=== PATIENT | male | born 1950 | race American Indian/Alaskan Native ===

== ENCOUNTER 2018-08-14 07:49 | Day surgery (SDC) | payer MEDICAID, MEDICARE ==
[~2018-08-14 07:49] MED LIST: ANCEF/STERILE WATER 2 GM/20 ML 2 GM/20 ML SYRINGE IV NR; NACL 0.9% 1000 ML 1,000 ML IV SCH
[2018-08-14] MEDS ORDERED: VERSED ONE (08:43)
--- NOTE | 2018-08-14 08:50 | Anesthesia Consultation ---
Anesthesia Consult and Med Hx Date of service: 08/14/18 - Airway ROM Head & Neck: Adequate Mental/Hyoid Distance: Adequate Mallampati Class: Class II Intubation Access Assessment: Probably Good - Pulmonary Exam CTA: Yes - Cardiac Exam Cardiac Exam: RRR - Pre-Operative Health Status ASA Pre-Surgery Classification: ASA4 Proposed Anesthetic Plan: General - Pulmonary Hx Smoking: No - Cardiovascular System Hx Hypertension: Yes - Central Nervous System Hx Psychiatric Problems: No - Endocrine Hx Renal Disease: Yes Hx End Stage Renal Disease: Yes - Other Systems Hx Cancer: No
[2018-08-14 08:58] LABS: Calcium 8.1 mg/dL (8.4-10.2)
[2018-08-14] MEDS ORDERED: PEPCID PO NR (09:00)
[2018-08-14] MEDS ORDERED: NACL 0.9% 1000 ML 1,000 ML IV SCH (09:00)
[2018-08-14] MEDS ORDERED: DILAUDID ONE (10:56)
[2018-08-14] MEDS ORDERED: DIPRIVAN 10 MG/ML IV ONE (10:56)
[2018-08-14] MEDS ORDERED: XYLOCAINE MPF 2% ONE (10:57)
[2018-08-14] MEDS ORDERED: HEPARIN 10,000 UNITS/10 ML ONE (11:01)
[2018-08-14] MEDS ORDERED: MARCAINE-EPI 0.5%-1:200,000 INFILTRATI ONE ×2 (11:02→12:19)
[2018-08-14] MEDS ORDERED: NITROGLYCERIN SYRINGE 0 ML ONE (11:03)
[2018-08-14] MEDS ORDERED: NACL 0.9% 500 ML 500 ML ONE (11:03)
[2018-08-14] MEDS ORDERED: GELFOAM TP ONE ×2 (11:04→12:20)
[2018-08-14] MEDS ORDERED: XYLOCAINE 1%/ EPI 1:100,000 INFILTRATI ONE (11:04)
[2018-08-14] MEDS ORDERED: SODIUM BICARBONATE ONE (11:04)
[2018-08-14] MEDS ORDERED: THROMBIN (BOVINE) TP ONE ×2 (11:05→12:20)
[2018-08-14] MEDS ORDERED: NACL 0.9% IR ONE ×2 (12:19→13:00)
[2018-08-14] MEDS ORDERED: HEPARIN 10,000 UNITS/10 ML 2,000 UNIT in NACL 0.9% 500 ML 500 ML IR ONE (12:21)
[2018-08-14] MEDS ORDERED: RIFADIN IV ONE (12:54)
[2018-08-14] MEDS ORDERED: ADRENALIN ONE (13:11)
--- NOTE | 2018-08-14 14:24 | Short Stay Summary ---
Short Stay Documentation Date of service: 08/14/18 - History H&P: obtained from office - Allergies and Medications Current Medications: Allergies aspirin Allergy (Verified 08/13/18 15:50) Unknown Home Medications Medication Instructions Recorded Confirmed Last Taken Type Aspirin Enteric Coated TAB 325 mg PO DAILY 08/14/18 08/14/18 08/13/18 09:00 History Calcium Carbonate 1 tab PO TID 08/14/18 08/14/18 08/13/18 21:00 History Dialyvite 800 Plus D Wafer 800 mg PO DAILY 08/14/18 08/14/18 08/13/18 21:00 History HumuLIN N 20 units SUB-Q BID 08/14/18 08/14/18 07/24/18 History Hydralazine HCl 10 mg PO TID 08/14/18 08/14/18 08/13/18 21:00 History Isosorbide Dinitrate 30 mg PO TID 08/14/18 08/14/18 08/13/18 21:00 History Labetalol 200 mg PO TID 08/14/18 08/14/18 08/13/18 21:00 History Omeprazole 40 mg PO DAILY 08/14/18 08/14/18 08/14/18 07:00 History Pravastatin [Pravachol] 40 mg PO QHS 08/14/18 08/14/18 08/13/18 21:00 History Torsemide 20 mg PO DAILY 08/14/18 08/14/18 08/13/18 09:00 History Vitamelts Fast Dissolve 1,500 mcg PO DAILY 08/14/18 08/14/18 08/13/18 08:00 History Vitamin B12 1,500 mcg PO DAILY 08/14/18 08/14/18 08/13/18 09:00 History cloNIDine [Catapres] 0.1 mg PO TID 08/14/18 08/14/18 08/13/18 21:00 History Active Medications Famotidine (Pepcid) 20 mg PO PREOP NR Stop: 08/14/18 15:00 Last Admin: 08/14/18 08:53 Dose: 20 mg Documented by: Cefazolin Sodium (Ancef/Sterile Water 2 Gm/20 Ml) 2 gm in 20 mls @ 80 mls/hr IV PREOP NR; Protocol Stop: 08/14/18 23:00 Sodium Chloride (Nacl 0.9% 1000 Ml) 1,000 mls @ 42 mls/hr IV DIRECT ANTONI Last Admin: 08/14/18 08:40 Dose: 42 mls/hr Documented by: - Brief post op/procedure progress note Date of procedure: 08/14/18 Pre-op diagnosis: thrombosed right arm arteriovenous fistual Post-op diagnosis: same Procedure: 1. Open thrombectomy with revision of the right arm arteriovenous fistula 2. Fluoroscopic assistance Anesthesia: GETA, local Findings: Good thrill and palpable right radial pulse at end of procedure Surgeon: NAVEED DURAN Slitter Processed Film: GILBERT PAGAN Estimated blood loss: 50-100ml Pathology: list (thrombus) Specimen disposition: to lab Condition: stable - Hospital course Hospital course: benign - Disposition Condition at discharge: Good Disposition: DC-01 TO HOME OR SELFCARE Short Stay Discharge Plan Activity: advance as tolerated Diet: advance as tolerated Wound: per your surgeon's advice Follow up with: NAVEED DURAN MD [Staff Physician] - 7 Days Prescriptions: HYDROcodone/APAP 5-325 [[place] 5/325] 1 each PO Q6HR PRN #30 tablet PRN Reason: Pain
[2018-08-14] MEDS ORDERED: D50W (25GM) Syringe IV ONE ×2 (14:30→14:43)
--- NOTE | 2018-08-14 14:32 | Operative Report ---
Operative Report Operative Report: Date of procedure: 08/14/2017 Pre-operative diagnosis: Thrombosed right forearm arteriovenous fistula Post-operative diagnosis: Same Procedure: 1. Open thrombectomy and revision of right arm arterial venous fistula using 6 mm bovine graft 2. Fluoroscopic assistance Surgeon: Bj Diggs MD Organizational Psychologist: Minerva Oquendo Anesthesia: Gen. with local supplementation EBL: Less than 100 mL Operative indication: Patient is a 68-year-old man with a 2-year-old radiocephalic fistula in the right forearm. The fistula thrombosed a week or so ago. He has a permacath in place now which she is using for dialysis. He presents now for thrombectomy of the existing arteriovenous graft. Findings: There was a large pseudoaneurysm in the proximal forearm which drained through diminished venous outflow at the antebrachial vein. Fistula could only be salvaged by bridging this area with a new 6 mm bovine graft. There was an excellent thrill and palpable right radial pulse at the end of the procedure. Procedure description: The patient was placed on the table in the supine position. He was given appropriate anesthesia. The area over the right arm was prepped with ChloraPrep solution and draped in usual sterile fashion. Real-time ultrasound guidance was used to identify the anatomy of the fistula. The location of the radial artery and the anastomosis was noted. The venous outflow was marked on the skin as well. Using ultrasound guidance, the proximal end of the fistula near the antecubital fossa was cannulated using micropuncture technique. Ultimately a a vertebral catheter was placed into the vein. Drainage was exclusively through the cephalic vein in the upper arm. The vein was thrombosed to about the mid upper arm. Retrograde views were then taken which showed that the vein coursed into the pseudoaneurysm at the top of the cannulation sites and a disadvantaged arrangement with severe narrowing. This equipment was removed. The patient was heparinized ultimately with 4000 units of intravenous heparin. An incision was made over the arterial anastomosis and dissection was carried out to identify the lowest portion of the arterial anastomosis. There was dense scar tissue in the area and I became concerned that it was difficult to see any nerve structures in the area. This dissection was temporarily abandoned. A second incision was made over the venous outflow at the level of the pseudoaneurysm in the proximal forearm extending toward the venous outflow. All structures were identified and surrounded with Vesseloops proximally and distally. An incision was made in the pseudoaneurysm which revealed that the venous outflow was at the base of the pseudoaneurysm through a very narrowed area. I spatulated this opened up to a more normal-appearing segment of the vein although still quite thickened. Proximally, the pseudoaneurysm origin was dissected back to reasonable looking vein. Using fluoroscopy and an [id number] Geoffrey catheter, thrombectomy was done of the venous outflow. Thrombus was obtained and back bleeding was identified. There was no impediment to passage of the Geoffrey. Proximally, the Geoffrey was passed over a wire into the radial artery. Complete thrombectomy including the arterial plug was achieved. There was now excellent inflow into the arteriovenous fistula. There was too much distance to bridge with autogenous tissue. A 6 mm bovine graft was tailored appropriately and sewn into place on the lower end of the arteriovenous fistula using 5-0 Prolene. The upper end of the graft was then sewn in a beveled fashion to the venous outflow using 6-0 Prolene. All vessels were flushed and vented remove any air or debris. There was excellent pulsatile arterial inflow. Venous outflow appeared to be preserved. The anastomosis was completed and flow was started into the fistula with development of a thrill over the fistula. There was a palpable thrill in the cephalic vein TO the shoulder. Meticulous hemostasis was obtained. The wound was infiltrated with half percent Marcaine with epinephrine. Closure was done with 3-0 Vicryl and 4-0 subcuticular Monocryl. Sterile dressings were applied. The patient had a palpable thrill in the arteriovenous graft and venous outflow. There was a palpable right radial pulse. Sponge, needle and instrument counts were reported as correct. The patient tolerated the procedure well and was taken from the operating room to the recovery room in stable condition.
[2018-08-14] MEDS ORDERED: APRESOLINE ONE (14:35)
[2018-08-14] MEDS ORDERED: D50W (25GM) Vial IV ONE (14:43)
[2018-08-14] MEDS ORDERED: NORCO 5/325 PO PRN (16:25)
[2018-08-14 17:12] VITALS: BP 153/74
== END 2018-08-14 07:50 | disposition home or self-care (01) ==
LOC: OR 07:49
PROVIDERS: ATTEND Surgery Vascular Surgery
DX: T82.868A Thrombosis due to vascular prosthetic devices, implants and grafts, initial encounter (principal); K21.9 Gastro-esophageal reflux disease without esophagitis; I12.0 Hypertensive chronic kidney disease with stage 5 chronic kidney disease or end stage renal disease; N18.6 End stage renal disease; M19.90 Unspecified osteoarthritis, unspecified site; Z99.2 Dependence on renal dialysis; Z79.899 Other long term (current) drug therapy; Z79.82 Long term (current) use of aspirin; Z98.890 Other specified postprocedural states; Z88.6 Allergy status to analgesic agent; Y83.8 Other surgical procedures as the cause of abnormal reaction of the patient, or of later complication, without mention of misadventure at the time of the procedure; Y92.89 Other specified places as the place of occurrence of the external cause
CPT/HCPCS: 36833; 80048; 82962; 88304; A4649; C1757; C1768; C1769; C1894; J0171; J0360; J0690; J1170; J1644; J2250; J2704; J3490; J7030; J7040; Q9966

== ENCOUNTER 2019-06-08 05:49 | Emergency (ER) | payer MEDICARE ==
[2019-06-08 06:07] VITALS: BP 137/66
[2019-06-08 06:44] LABS: Basophils % (Auto) 0.9 % (0.0-1.8); Eosinophils # (Auto) 0.6 K/mm3 (0.0-0.4); Eosinophils % (Auto) 13.3 % (0.0-4.3); Hematocrit 25.6 % (35.5-45.6); Hemoglobin 8.4 gm/dl (11.8-15.2); Lymphocytes # (Auto) 0.6 K/mm3 (1.2-5.4); Lymphocytes % (Auto) 13.1 % (13.4-35.0); Mean Corpuscular HGB Conc 33 % (32-34); Mean Corpuscular Volume 93 fl (84-94); Monocytes # (Auto) 0.4 K/mm3 (0.0-0.8); Monocytes % (Auto) 9.5 % (0.0-7.3); Platelet Count 116 K/mm3 (140-440); Red Blood Count 2.74 M/mm3 (3.65-5.03); Red Cell Distribution Width 15.1 % (13.2-15.2)
[2019-06-08 07:05] LABS: Calcium 7.4 mg/dL (8.4-10.2)
--- NOTE | 2019-06-08 08:44 | Emergency Department Report ---
ED General Adult HPI - General Chief complaint: Medical Clearance Stated complaint: NEED LABS DRAWN Time Seen by Provider: 06/08/19 08:34 Source: patient, family Mode of arrival: Ambulatory Limitations: No Limitations - History of Present Illness Initial comments: CC: "I feel fine." HPI: Mr. Pierce is a very pleasant 69 yo male with hx of ESRD on HD T/R/Sa who presents with need for blood work. He returned to his normal time to [facility] HD clinic this morning. Since he has missed HD for 9 days, he was told to come to the ED for bloodwork. He was unable to receive HD in the interim because he need intervention on his AV access. He denies shortness of breath. "I feel good.", he explains. He makes ample urine. He has been on dialysis for 4 days. -: days(s) (9) Severity scale (0 -10): 0 Consistency: constant Improves with: none Worsens with: none Associated Symptoms: denies other symptoms - Related Data Home Medications Medication Instructions Recorded Confirmed Last Taken Aspirin Enteric Coated TAB 325 mg PO DAILY 08/14/18 08/14/18 08/13/18 09:00 Calcium Carbonate 1 tab PO TID 08/14/18 08/14/18 08/13/18 21:00 Dialyvite 800 Plus D Wafer 800 mg PO DAILY 08/14/18 08/14/18 08/13/18 21:00 HumuLIN N 20 units SUB-Q BID 08/14/18 08/14/18 07/24/18 Hydralazine HCl 10 mg PO TID 08/14/18 08/14/18 08/13/18 21:00 Isosorbide Dinitrate 30 mg PO TID 08/14/18 08/14/18 08/13/18 21:00 Labetalol 200 mg PO TID 08/14/18 08/14/18 08/13/18 21:00 Omeprazole 40 mg PO DAILY 08/14/18 08/14/18 08/14/18 07:00 Pravastatin [Pravachol] 40 mg PO QHS 08/14/18 08/14/18 08/13/18 21:00 Torsemide 20 mg PO DAILY 08/14/18 08/14/18 08/13/18 09:00 Vitamelts Fast Dissolve 1,500 mcg PO DAILY 08/14/18 08/14/18 08/13/18 08:00 Vitamin B12 1,500 mcg PO DAILY 08/14/18 08/14/18 08/13/18 09:00 cloNIDine [Catapres] 0.1 mg PO TID 08/14/18 08/14/18 08/13/18 21:00 Previous Rx's Medication Instructions Recorded Last Taken Type HYDROcodone/APAP 5-325 [[place] 1 each PO Q6HR PRN #30 tablet 08/14/18 Unknown Rx 5/325] Allergies Allergy/AdvReac Type Severity Reaction Status Date / Time aspirin Allergy Unknown Verified 08/13/18 15:50 ED Review of Systems ROS: Stated complaint: NEED LABS DRAWN Other details as noted in HPI Comment: All other systems reviewed and negative Constitutional: denies: fever, malaise Respiratory: denies: cough Cardiovascular: denies: chest pain Gastrointestinal: denies: abdominal pain, nausea, vomiting ED Past Medical Hx - Past Medical History Previous Medical History?: Yes Hx Hypertension: Yes Hx Diabetes: Yes Hx GERD: Yes Hx Renal Disease: Yes Hx Arthritis: Yes (Neck) Hx Headaches / Migraines: Yes Additional medical history: CARPEL TUNNEL BURITIS - Surgical History Past Surgical History?: Yes Additional Surgical History: fistula - Social History Smoking Status: Former Smoker Substance Use Type: None - Medications Home Medications: Home Medications Medication Instructions Recorded Confirmed Last Taken Type Aspirin Enteric Coated TAB 325 mg PO DAILY 08/14/18 08/14/18 08/13/18 09:00 History Calcium Carbonate 1 tab PO TID 08/14/18 08/14/18 08/13/18 21:00 History Dialyvite 800 Plus D Wafer 800 mg PO DAILY 08/14/18 08/14/18 08/13/18 21:00 History HYDROcodone/APAP 5-325 [[place] 1 each PO Q6HR PRN #30 tablet 08/14/18 Unknown Rx 5/325] HumuLIN N 20 units SUB-Q BID 08/14/18 08/14/18 07/24/18 History Hydralazine HCl 10 mg PO TID 08/14/18 08/14/18 08/13/18 21:00 History Isosorbide Dinitrate 30 mg PO TID 08/14/18 08/14/18 08/13/18 21:00 History Labetalol 200 mg PO TID 08/14/18 08/14/18 08/13/18 21:00 History Omeprazole 40 mg PO DAILY 08/14/18 08/14/18 08/14/18 07:00 History Pravastatin [Pravachol] 40 mg PO QHS 08/14/18 08/14/18 08/13/18 21:00 History Torsemide 20 mg PO DAILY 08/14/18 08/14/18 08/13/18 09:00 History Vitamelts Fast Dissolve 1,500 mcg PO DAILY 08/14/18 08/14/18 08/13/18 08:00 History Vitamin B12 1,500 mcg PO DAILY 08/14/18 08/14/18 08/13/18 09:00 History cloNIDine [Catapres] 0.1 mg PO TID 08/14/18 08/14/18 08/13/18 21:00 History ED Physical Exam - General Limitations: No Limitations General appearance: alert, in no apparent distress, other (pleasant, smiling, articulate) - Head Head exam: Present: atraumatic, normocephalic - Eye Eye exam: Present: normal appearance - ENT ENT exam: Present: mucous membranes moist - Neck Neck exam: Present: normal inspection - Respiratory Respiratory exam: Present: normal lung sounds bilaterally. Absent: respiratory distress, wheezes, rales, rhonchi - Cardiovascular Cardiovascular Exam: Present: regular rate, normal rhythm, normal heart sounds. Absent: systolic murmur, diastolic murmur, rubs, gallop - GI/Abdominal GI/Abdominal exam: Present: soft, normal bowel sounds. Absent: distended, tende rness, guarding, rebound - Rectal Rectal exam: Present: deferred - Extremities Exam Extremities exam: Present: other (swollen hand, soft, nontender) - Neurological Exam Neurological exam: Present: alert, oriented X3 - Psychiatric Psychiatric exam: Present: normal affect, normal mood - Skin Skin exam: Present: warm, dry, intact, normal color. Absent: rash ED Course Vital Signs 06/08/19 06:00 Temperature 97.9 F Pulse Rate 81 Respiratory 20 Rate Blood Pressure 137/66 O2 Sat by Pulse 100 Oximetry ED Medical Decision Making - Lab Data Result diagrams: 06/08/19 06:05 06/08/19 06:05 - Medical Decision Making Mr. Pierce presents with swelling in the right upper extremity after intervention on AV access. He otherwise feels "great". He desires to return to hemodialysis. [facility] staff recommended that he comes into the emergency Department for blood work. Potassium is 4.6. He has baseline anemia. I do not suspect any significant bleeding from previous vascular intervention. I advised him to return to the HD clinic today to arrange for the next available slot for hemodialysis. Critical care attestation.: If time is entered above; I have spent that time in minutes in the direct care of this critically ill patient, excluding procedure time. ED Disposition Clinical Impression: Missed dialysis, ESRD (end stage renal disease) on dialysis Disposition: DC-01 TO HOME OR SELFCARE Is pt being admited?: No Does the pt Need Aspirin: No Condition: Stable Additional Instructions: Please return to your [facility] clinic today to arrange for the next available dialysis slot.
== END 2019-06-08 09:04 | disposition home or self-care (01) ==
LOC: ED 05:49
DX: I12.0 Hypertensive chronic kidney disease with stage 5 chronic kidney disease or end stage renal disease (principal); E11.22 Type 2 diabetes mellitus with diabetic chronic kidney disease; N18.6 End stage renal disease; Z99.2 Dependence on renal dialysis; Z88.6 Allergy status to analgesic agent; Z79.899 Other long term (current) drug therapy; Z87.891 Personal history of nicotine dependence
CPT/HCPCS: 36415; 80048; 85025; 99283